=== PATIENT | male | born 1960 | race African-American/Black ===

== ENCOUNTER 2019-10-16 08:01 | Emergency (ER) | payer OTHER ==
--- NOTE | 2019-10-16 08:42 | RAD REPORT ---
EXAM DESCRIPTION: RAD - Foot Left 3 View - 10/16/2019 8:34 am CLINICAL HISTORY: Left Foot pain and swelling FINDINGS: No acute fracture or dislocation Old metatarsal fractures are seen. Osteoporosis. Degenerative changes involve the tarsal metatarsal joints Subtle cortical regularity involves the first distal phalanx. Lucency is present within the distal as pect of the first proximal phalanx. One or both areas may indicate osteomyelitis.
[2019-10-16 08:47] LABS: Basophils % 0.5 % (0-1.3); Lymphocytes % 18.8 % (15.3-44.8); MPV 9.1 fL (7.6-11.3); RBC Red Blood Cell Count 3.19 M/uL (4.33-5.43)
--- NOTE | 2019-10-16 09:04 | EDPHYS ---
Physician Documentation [facility] Name: Fer Gamez Age: 59 yrs Sex: Male : 1960 Arrival Date: 10/16/2019 Time: 08:06 Bed 7 Private MD: ED Physician Saúl Hair HPI: 10/15 08:21 This 59 yrs old Black Male presents to ER via Wheelchair with complaints of Toe rn Problem- ulcer. 08:21 The patient presents with pain. The patient presents with swelling. The complaints rn affect the left foot. Onset: The symptoms/episode began/occurred 3 week(s) ago. Modifying factors: The symptoms are alleviated by nothing, the symptoms are aggravated by weight bearing, movement. Severity of symptoms: At their worst the symptoms were mild, in the emergency department the symptoms are unchanged. The patient has not experienced similar symptoms in the past. Reports diabetic, noticed "hole" on bottom of left great toe, unknown exactly when started, thinks about 3 weeks ago, + pain for about a month, swelling since yesterday, no known trauma. No fever. Reports glucose in 90s lately. . Historical: - Allergies: 08:08 Morphine; aa5 08:08 Codeine; aa5 - PMHx: 08:08 Recovering Drug Addict; Diabetes - IDDM; Hyperlipidemia; Hypertension; aa5 - PSHx: 08:08 CABG; heart bypass; aa5 - Immunization history:: Adult Immunizations unknown. - Social history:: Smoking status: Patient denies any tobacco usage or history of. - Family history:: not pertinent. - Hospitalizations: : No recent hospitalization is reported. ROS: 08:21 Constitutional: Negative for fever, chills, and weight loss, Eyes: Negative for injury, rn pain, redness, and discharge, Cardiovascular: Negative for chest pain, palpitations, and edema, Respiratory: Negative for shortness of breath, cough, wheezing, and pleuritic chest pain, Abdomen/GI: Negative for abdominal pain, nausea, vomiting, diarrhea, and constipation, MS/Extremity: Negative for injury and deformity, Skin: + ulcer to bottom of left great toe Neuro: Negative for headache, weakness, numbness, tingling, and seizure. Exam: 08:21 Constitutional: This is a well developed, well nourished patient who is awake, alert, rn and in no acute distress. Head/Face: Normocephalic, atraumatic. Eyes: Periorbital areas with no swelling, redness, or edema. Cardiovascular: Regular rate and rhythm. No pulse deficits. Respiratory: No increased work of breathing, no retractions or nasal flaring. Skin: Warm, dry MS/ Extremity: Pulses equal, no cyanosis. Neurovascular intact. Full, normal range of motion. + non-pitting edema LLE, + shallow dry ulceration to bottom of left great toe, no drainage/crepitus/foul smell/fluctuance. Neuro: Awake and alert, GCS 15 Vital Signs: 08:07 BP 148 / 77; Pulse 82; Resp 16 S; Temp 99.3(O); Pulse Ox 98% on R/A; Weight 90.72 kg aa5 (R); Height 5 ft. 9 in. (175.26 cm) (R); Pain 10/10; 10:06 BP 116 / 88; Pulse 79; Resp 15 S; Pulse Ox 95% on R/A; ca1 10:56 BP 133 / 85; Pulse 88; Resp 16 S; Pulse Ox 99% on R/A; ca1 08:07 Body Mass Index 29.53 (90.72 kg, 175.26 cm) aa5 MDM: 08:06 Patient medically screened. rn 09:02 Differential diagnosis: osteomyelitis, diabetic ulcer. Data reviewed: vital signs, rn nurses notes, lab test result(s), radiologic studies, plain films, and as a result, I will admit patient. Counseling: I had a detailed discussion with the patient and/or guardian regarding: the historical points, exam findings, and any diagnostic results supporting the discharge/admit diagnosis, radiology results, the need for further work-up and treatment in the hospital. Admission orders: after a detailed discussion of the patient's condition and case, the admit orders are written by me. ED course: Pt with signs of osteo on xray, diabetic, will admit to Dr. Hair for IV abx, infectious disease consult, and further care. . 10:49 ED course: Pt has now changed his mind, does not want to be admitted, understands risks rn of leaving AMA and delaying treatment for osteomyelitis, told him could end up as amputation if does not stay for treatment. . 10/15 08:17 Order name: CBC with Diff; Complete Time: 09:32 rn 10/15 08:17 Order name: Basic Metabolic Panel; Complete Time: 09:50 rn 10/15 08:17 Order name: Sed Rate; Complete Time: 09:32 rn 10/15 08:17 Order name: CRP; Complete Time: 09:50 rn 10/15 08:17 Order name: Procalcitonin; Complete Time: 09:32 rn 10/15 08:17 Order name: Blood Culture Adult (2) rn 10/15 08:17 Order name: IV Start; Complete Time: 08:48 rn 10/15 08:17 Order name: XRAY Foot LEFT 3 View; Complete Time: 08:57 rn 10/15 08:17 Order name: Extremity Venous Uni Ltd US; Complete Time: 09:50 rn Administered Medications: No medications were administered Disposition: 10/16/19 10:51 Patient has left against medical advice. Impression: Osteomyelitis - Left foot. - Patients states they are going to Home. - Condition is Stable. Follow up: Private Physician; When: Upon discharge from the Emergency Department; Reason: Recheck today's complaints, Re-evaluation by your physician. - Problem is an ongoing problem. - Symptoms are unchanged. Signatures: Dispatcher [employer] EDMS Bere Henderson, HANDYPERSON-C HANDYPERSON-Csnw Saúl Hair MD MD rn Calderon, Audri, RN RN aa5 Kiara Lambert RN RN ca1 Corrections: (The following items were deleted from the chart) 10:50 09:03 Hospitalization Ordered by Landry Hair MD for Inpatient Admission. Preliminary rn diagnosis is Osteomyelitis - Left foot. Bed requested for Telemetry/MedSurg (Inpatient). Status is Inpatient Admission. Condition is Stable. Problem is an ongoing problem. Symptoms are unchanged. rn 11:10 10:51 10/16/2019 10:51 Patients has left against medical advice. Impression: ca1 Osteomyelitis - Left foot. Patient states they are going to Home. Condition is Stable. Follow up: Private Physician; When: Upon discharge from the Emergency Department; Reason: Recheck today's complaints, Re-evaluation by your physician. Problem is an ongoing problem. Symptoms are unchanged. rn
--- NOTE | 2019-10-16 09:04 | ER ---
Nurse's Notes [facility] Name: Fer Gamez Age: 59 yrs Sex: Male : 1960 Arrival Date: 10/16/2019 Time: 08:06 Bed 7 Private MD: Diagnosis: Osteomyelitis-Left foot Presentation: 10/15 08:07 Chief complaint: Patient states: left great toe ulcer that began 3 weeks ago, pt also aa5 reports left foot swelling/pain and left lower leg swelling/pain that began 1 week ago. 08:07 Coronavirus screen: Client denies travel out of the [place] in the last 14 days. At this aa5 time, the client does not indicate any symptoms associated with coronavirus-19. Ebola Screen: Patient negative for fever greater than or equal to 101.5 degrees Fahrenheit, and additional compatible Ebola Virus Disease symptoms. Initial Sepsis Screen: Does the patient meet any 2 criteria? No. Patient's initial sepsis screen is negative. Does the patient have a suspected source of infection? No. Patient's initial sepsis screen is negative. Risk Assessment: Do you want to hurt yourself or someone else? Patient reports no desire to harm self or others. Onset of symptoms was 2019. 08:07 Acuity: ROGERS 3 aa5 08:07 Method Of Arrival: Wheelchair aa5 Historical: - Allergies: 08:08 Morphine; aa5 08:08 Codeine; aa5 - PMHx: 08:08 Recovering Drug Addict; Diabetes - IDDM; Hyperlipidemia; Hypertension; aa5 - PSHx: 08:08 CABG; heart bypass; aa5 - Immunization history:: Adult Immunizations unknown. - Social history:: Smoking status: Patient denies any tobacco usage or history of. - Family history:: not pertinent. - Hospitalizations: : No recent hospitalization is reported. Screenin:20 Abuse screen: Denies threats or abuse. Nutritional screening: No deficits noted. aa5 Tuberculosis screening: No symptoms or risk factors identified. Fall Risk None identified. Assessment: 08:08 General: Appears comfortable, Behavior is calm, cooperative. Pain: Complains of pain in aa5 left foot and left lower leg Pain does not radiate. Pain currently is 10 out of 10 on a pain scale. Quality of pain is described as sharp, tender, Pain began 1 week ago Is continuous. Neuro: Level of Consciousness is awake, alert, obeys commands, Oriented to person, place, time, situation. Cardiovascular: Heart tones S1 S2 present Rhythm is regular. Respiratory: Airway is patent Respiratory effort is even, unlabored, Respiratory pattern is regular, symmetrical. GI: No signs and/or symptoms were reported involving the gastrointestinal system. : No signs and/or symptoms were reported regarding the genitourinary system. EENT: No signs and/or symptoms were reported regarding the EENT system. Derm: Skin is pink, warm \\T\\ dry. Ulcer noted to plantar aspect of left great toe. Musculoskeletal: Range of motion: intact in all extremities, Swelling present in left foot, left great toe, and left lower leg that is non-pitting and pt reports swelling began 1 week ago. 08:47 Reassessment: Patient is alert, oriented x 3, equal unlabored respirations, skin aa5 warm/dry/pink. Pt notified of wait time for lab results, pt currently to US via wheelchair. . 10:06 Reassessment: Patient appears in no apparent distress at this time. Patient and/or ca1 family updated on plan of care and expected duration. Pain level reassessed. Patient is alert, oriented x 3, equal unlabored respirations, skin warm/dry/pink. 10:40 Reassessment: PT states, " I want to talk to somebody cause I don't want to stay here, ca1 I want to go home". Notified Dr. Hair. 10:48 Reassessment: Dr. Hair at bedside to talk to pt. ca1 10:54 Reassessment: Patient appears in no apparent distress at this time. Patient is alert, ca1 oriented x 3, equal unlabored respirations, skin warm/dry/pink. Vital Signs: 08:07 BP 148 / 77; Pulse 82; Resp 16 S; Temp 99.3(O); Pulse Ox 98% on R/A; Weight 90.72 kg aa5 (R); Height 5 ft. 9 in. (175.26 cm) (R); Pain 10/10; 10:06 BP 116 / 88; Pulse 79; Resp 15 S; Pulse Ox 95% on R/A; ca1 10:56 BP 133 / 85; Pulse 88; Resp 16 S; Pulse Ox 99% on R/A; ca1 08:07 Body Mass Index 29.53 (90.72 kg, 175.26 cm) aa5 ED Course: 08:06 Patient arrived in ED. as 08:06 Saúl Hair MD is Attending Physician. rn 08:07 Arm band placed on Patient placed in an exam room, on a stretcher. aa5 08:07 Patient has correct armband on for positive identification. Bed in low position. Call aa5 light in reach. Side rails up X 1. Pulse ox on. NIBP on. 08:10 Concha Beltran, RN is Primary Nurse. aa5 08:21 Triage completed. aa5 08:34 XRAY Foot LEFT 3 View In Process Unspecified. EDMS 08:35 Inserted saline lock: 20 gauge in right wrist, using aseptic technique. aa5 08:35 Initial lab(s) drawn, by me, sent to lab. First set of blood cultures drawn by me. aa5 08:45 Second set of blood cultures drawn by me. aa5 09:03 Landry Hair MD is Hospitalizing Provider. rn 09:04 Extremity Venous Uni Ltd US In Process Unspecified. EDMS 10:00 Report given to SHARON Craig. aa5 11:09 No provider procedures requiring assistance completed. IV discontinued, intact, ca1 bleeding controlled, No redness/swelling at site. Pressure dressing applied. Administered Medications: No medications were administered Outcome: 09:03 Decision to Hospitalize by Provider. rn 11: AMA AMA form signed ca1 11:09 Condition: stable 11:10 Patient left the ED. ca1 Signatures: Dispatcher [employer] TITUSMS Emma Riggs as Saúl Hair MD MD rn Calderon, Audri, SHARON RN aa5 Kiara Lambert RN RN ca1
[2019-10-16 09:33] LABS: C-Reactive Protein 8.18 mg/L (<3.00)
[2019-10-16 09:35] LABS: Potassium 5.7 mmol/L (3.5-5.1)
--- NOTE | 2019-10-16 09:42 | RAD REPORT ---
EXAM DESCRIPTION: USExtremity Venous Uni Ltd10/16/2019 9:16 am CLINICAL HISTORY: left leg pain and swelling. COMPARISON: None. FINDINGS: Left common femoral, superficial femoral, popliteal and posterior tibial veins are compre ssible and demonstrate augmentation. Doppler demonstrates good flow. IMPRESSION: No evidence of deep venous thrombosis involving the left lower extremity.
--- NOTE | 2019-10-16 22:08 | P.HP ---
Certification for Inpatient Patient admitted to: Observation With expected LOS: <2 Midnights Practitioner: I am a practitioner with admitting privileges, knowledge of patient current condition, hospital course, and medical plan of care. Services: Services provided to patient in accordance with Admission requirements found in Title 42 Section 412.3 of the Code of Federal Regulations Patient History Date of Service: 10/16/19 Reason for admission: concern for osteomyelitis History of Present Illness: 59yo male presents to ED due to worsening L great toe pain. PMH: HTN, DM2, HLD, recovering drug addict, CAD s/p CABG He reports noticing some skin flaking off the bottom of his L great toe for the past 3 weeks but wasn't too concerned about it. Today, he had moderate pain on t he bottom of his toe so he had someone look at it for him. They noticed a somewhat draining ulcer on the bottom of his toe, so he presented to the ED. He reports otherwise feeling well, no fevers/chills, no chest pain, no SOB, no nausea/vomiting. He reports no h/o similar ulcers in the past. In the ED, labwork was notable for elevated Creatinine: 1.92 and CRP: 8.18. Foot x-ray: Subtle cortical regularity involves the first distal phalanx. Lucency is present within the distal aspect of the first proximal phalanx. One or both areas may indicate osteomyelitis. I was asked to admit the patient for further evaluation and treatment of possible osteomyelitis. Home medications list reviewed: Yes - Past Medical/Surgical History -: DM2 -: HTN -: CAD s/p CABG -: recovering drug addict -: CABG - Family History Family History: Reviewed- Non-Contributory - Social History Smoking Status: Former smoker Alcohol use: No CD- Drugs: No Review of Systems General: Unremarkable Eyes: Unremarkable ENT: Unremarkable Respiratory: Unremarkable Cardiovascular: Unremarkable Gastrointestinal: Unremarkable Genitourinary: Unremarkable Musculoskeletal: Unremarkable Integumentary: Lesions, As per HPI Neurological: Unremarkable Physical Examination - Physical Exam General: Alert, In no apparent distress HEENT: Atraumatic, PERRLA, Mucous membr. moist/pink, EOMI, Sclerae nonicteric Neck: Supple, 2+ carotid pulse no bruit, No LAD, Without JVD or thyroid abnormality Respiratory: Clear to auscultation bilaterally, Normal air movement Cardiovascular: Regular rate/rhythm, Normal S1 S2 Gastrointestinal: Normal bowel sounds, Soft and benign, Non-distended, No tenderness Integumentary: Skin lesion (~4cm diameter area of macerated skin with central ~1cm diameter ulceration, no drainage noted) Neurological: Normal speech, Normal affect - Studies Laboratory Data (last 24 hrs) 10/16/19 08:35: Sodium 138, Potassium 5.7 H*, BUN 24 H, Creatinine 1.92 H, Glucose 340 H 10/16/19 08:35: WBC 5.1, Hgb 9.7 L, Hct 29.0 L, Plt Count 190 Assessment and Plan - Plan Possible L great toe osteomyelitis vs cellulitis DM2 HTN CAD s/p CABG -broad spectrum antibiotics for presumed osteomyelitis -will check MRI -may need general surgery to evaluate for debridement -wound care -likely due to DM2 -review / confirm home medications and restart -full code -if osteomyelitis, will need PICC and long-term antibiotics. - Advance Directives Does patient have a Living Will: No Does patient have a Durable POA for Healthcare: No Time Spent Managing Pts Care (In Minutes): 45
== END 2019-10-16 11:10 | disposition left against medical advice (07) ==
LOC: ER 08:01
DX: M86.9 Osteomyelitis, unspecified (principal); E11.621 Type 2 diabetes mellitus with foot ulcer; L97.529 Non-pressure chronic ulcer of other part of left foot with unspecified severity; E11.69 Type 2 diabetes mellitus with other specified complication; I10 Essential (primary) hypertension; Z95.1 Presence of aortocoronary bypass graft; Z88.5 Allergy status to narcotic agent
CPT/HCPCS: 36415; 80048; 84145; 85025; 85652; 86140; 87040; 93971; 99284